=== PATIENT | male | born 1980 | race Caucasian/White ===

== ENCOUNTER → 2019-01-30 | Outpatient (CLI) | payer OTHER | END | disposition home or self-care (01) | LOC: LAB SHORT 18:01 → LAB 18:01 | DX: B35.4 Tinea corporis (principal) | CPT/HCPCS: 87070; 87102; 87205 ==

== ENCOUNTER 2023-05-07 15:04 | Inpatient (IN) | payer OTHER ==
[~2023-05-07] VITALS: Ht 182.9 cm; Wt 76.0 kg
[2023-05-07 16:03] LABS: BASOPHILS ABSOLUTE AUTO 0.04 K/mm3 (0.00-0.23); BASOPHILS PERCENT AUTO 1 % (0-2); EOSINOPHILS ABSOLUTE AUTO 0.22 K/mm3 (0.00-0.68); EOSINOPHILS PERCENT AUTO 3 % (0-6); IMMATURE GRAN ABSOLUTE AUTO 0.05 K/mm3 (0.00-0.10); IMMATURE GRAN PERCENT AUTO 1 % (0-1); LYMPHOCYTES ABSOLUTE AUTO 1.84 K/mm3 (0.84-5.20); LYMPHOCYTES PERCENT AUTO 22 % (21-46); MONOCYTES ABSOLUTE AUTO 0.62 K/mm3 (0.16-1.47); MONOCYTES PERCENT AUTO 7 % (4-13); Mean Corpuscular HGB 17.5 pg (26.0-34.0); Mean Corpuscular HGB Conc 27.2 g/dL (31.5-36.5); Mean Corpuscular Volume 65 fL (80-100); Mean Platelet Volume 10.2 fL (9.1-12.4); NEUTROPHILS ABSOLUTE AUTO 5.58 K/mm3 (1.96-9.15); NEUTROPHILS PERCENT AUTO 67 % (41-73); NRBC ABSOLUTE 0.02 K/mm3 (0.00-0.02); NRBC Auto 0.2 /100 WBC (0.0-0.2); Platelet Count 487 K/mm3 (150-400); RDW Coefficient Variation 16.7 % (11.7-14.2); RDW Standard Deviation 38.3 fL (35.1-46.3); Red Blood Cell Count 2.68 M/mm3 (4.30-5.90); White Blood Cell Count 8.35 K/mm3 (4.00-11.30)
[2023-05-07 16:10] LABS: Hematocrit 17.3 % (37.0-53.0); Hemoglobin 4.7 g/dL (13.5-17.5)
[2023-05-07] MEDS ORDERED: NS 1,000 ML IV SCH (16:10)
[2023-05-07 16:46] LABS: Albumin, Blood 4.1 g/dL (3.4-5.0); Albumin/Globulin Ratio 1.1 (0.8-1.8); Bilirubin, Total 0.5 mg/dL (0.1-1.0); Bun/Creatinine Ratio 8.9 (12.0-20.0); Calcium, Blood 9.8 mg/dL (8.5-10.1); Creatinine, Blood 1.12 mg/dL (0.60-1.20); Globulin, Blood 3.8 g/dL (2.2-4.0); Magnesium, Blood 1.7 mg/dL (1.6-2.4); Potassium, Blood 4.2 mmol/L (3.5-5.5); Total Protein, Blood 7.9 g/dL (6.4-8.2)
[2023-05-07 16:48] LABS: Percent Saturation 1.2 % (20.0-50.0)
[2023-05-07] MEDS ORDERED: Ondansetron HCl 2 MG / ML 2ML Vial IV PRN (17:40)
[2023-05-07] MEDS ORDERED: FLU VACC QS2023-24(6MOS UP)/PF 60 MCG/0.5 ML SYRINGE IM SCH (17:40)
[2023-05-07] MEDS ORDERED: LORazepam 2 MG/ML 1ML Injection IV PRN (18:10)
[2023-05-07 18:27] LABS: Prothrombin Time Results 10.5 Sec (9.7-11.5)
[2023-05-07 18:43] VITALS: BP 146/94
--- NOTE | 2023-05-07 18:53 | NUR ---
DR. ERWIN WAS CALLED ABOUT THE PLAN FOR THE PT. HE STATED THERE WILL NOT BE A SCOPE TONIGHT AND ANOTHER PROVIDER WILL BE ON TOMORROW AND THEY WILL DISCUSS THE CASE FURTHER. HE STATED THE PT WILL NEED BOWEL PREP BEFORE A SCOPE. DR. ERWIN STATED THE PT MAY HAVE A CLEAR LIQUID DIET AT THIS TIME.
[2023-05-07] MEDS ORDERED: Sod Ferric Gluc Complx/Sucrose 125 MG in NS 100 ML IV SCH (19:00)
[2023-05-07] MEDS ORDERED: Folic Acid 1 MG in NS 50 ML IV SCH (19:00)
[2023-05-07] MEDS ORDERED: SUPHEDRINE PO (19:04)
[2023-05-07] MEDS ORDERED: ACET500 PO (19:04)
[2023-05-07] MEDS ORDERED: CYCL10 PO (19:05)
[2023-05-07 19:08] VITALS: BP 140/90
[2023-05-07] MEDS ORDERED: NS 500 ML IV SCH (19:30)
[2023-05-07 19:57] VITALS: BP 147/106
[2023-05-07 20:12] VITALS: BP 159/97
[2023-05-07 20:45] VITALS: BP 152/103
[2023-05-07 21:15] VITALS: BP 151/96
[2023-05-08] VITALS (10 sets, daily range): BP systolic 140–164; BP diastolic 84–114
[2023-05-08 03:41] LABS: Hematocrit 28.5 % (37.0-53.0); Hemoglobin 8.6 g/dL (13.5-17.5); Mean Corpuscular HGB 22.1 pg (26.0-34.0); Mean Corpuscular HGB Conc 30.2 g/dL (31.5-36.5); Mean Platelet Volume 9.7 fL (9.1-12.4); NRBC ABSOLUTE 0.02 K/mm3 (0.00-0.02); NRBC Auto 0.2 /100 WBC (0.0-0.2); Platelet Count 443 K/mm3 (150-400); RDW Coefficient Variation 23.1 % (11.7-14.2); RDW Standard Deviation 58.9 fL (35.1-46.3); White Blood Cell Count 11.74 K/mm3 (4.00-11.30)
[2023-05-08 03:42] LABS: Mean Corpuscular Volume 73 fL (80-100)
[2023-05-08 03:57] LABS: Bun/Creatinine Ratio 7.5 (12.0-20.0); Calcium, Blood 9.7 mg/dL (8.5-10.1); Creatinine, Blood 0.93 mg/dL (0.60-1.20); Potassium, Blood 3.9 mmol/L (3.5-5.5)
[2023-05-08] MEDS ORDERED: Pantoprazole Sodium 40 MG Injection IV SCH (06:00)
--- NOTE | 2023-05-08 06:51 | NUR ---
SHIFT SUMMARY PATIENT ALERT AND ORIENTED x4. ANXIOUS ABOUT MEDICAL CARE BUT PATIENT IS RECEPTIVE TO PLAN OF CARE. PATIENT REPORTS "PANIC ATTACKS" WITH IV INSERTION OR ANY PROCEDURES INVOLVING NEEDLES. PATIENT WILL BECOME DIAPHORETIC AND PALE DURING PROCEDURES BUT DECLINES ANTI ANXIETY MEDICATION. MENTIONING MULTIPLE TIMES DURING THE NIGHT "I'M OK, IT'S JUST IN MY HEAD". ABLE TO MAKE NEEDS KNOWN TO STAFF. BP STABLE. TELE READING SR 80s DURING THE NIGHT. DENIED CHEST PAIN. PATIENT RECIEVED 3 UNITS PRBCs, STATES HE IS FEELING MUCH BETTER AFTER TRANSFUSIONS. AMBULATING IN ROOM INDEPENDENTLY. ADEQUATE OUTPUT DURING THE NIGHT. NO OTHER CHANGES, WILL REPORT TO DAY SHIFT RN.
[2023-05-08] MEDS ORDERED: Peg/Electrolytes 4,000 ML BTL PO ONE ×2 (08:05→13:05)
--- NOTE | 2023-05-08 17:59 | NUR ---
SHIFT SUMMARY; ASSUMED CARE AT 0700. A/A/OX4. REPORTS FEELING MUCH IMPROVED FROM PREVIOUS SHIFT. INDEPENDANT IN ROOM, REPOSITIONS SELF NEEDED. CLEAR DIET T/O DAY PER ORDERS. BOWEL PREP WITH [facility] FOR COLONOSCOPY TOMORROW AM, NPO AT 1600 TODAY PER ORDERS. PLEASANT AND COOPERATIVE WITH CARE, WILL CONTINUE TO MONITOR AND TREAT UNTIL CHANGE OF SHIFT.
[2023-05-09] VITALS (37 sets, daily range): BP systolic 121–168; BP diastolic 75–108
[2023-05-09 04:39] LABS: BASOPHILS ABSOLUTE AUTO 0.04 K/mm3 (0.00-0.23); BASOPHILS PERCENT AUTO 0 % (0-2); EOSINOPHILS ABSOLUTE AUTO 0.39 K/mm3 (0.00-0.68); EOSINOPHILS PERCENT AUTO 4 % (0-6); Hematocrit 27.1 % (37.0-53.0); Hemoglobin 8.3 g/dL (13.5-17.5); IMMATURE GRAN ABSOLUTE AUTO 0.05 K/mm3 (0.00-0.10); IMMATURE GRAN PERCENT AUTO 1 % (0-1); LYMPHOCYTES ABSOLUTE AUTO 2.68 K/mm3 (0.84-5.20); LYMPHOCYTES PERCENT AUTO 27 % (21-46); MONOCYTES ABSOLUTE AUTO 0.78 K/mm3 (0.16-1.47); MONOCYTES PERCENT AUTO 8 % (4-13); Mean Corpuscular HGB 22.6 pg (26.0-34.0); Mean Corpuscular HGB Conc 30.6 g/dL (31.5-36.5); Mean Corpuscular Volume 74 fL (80-100); NEUTROPHILS ABSOLUTE AUTO 6.18 K/mm3 (1.96-9.15); NEUTROPHILS PERCENT AUTO 61 % (41-73); Platelet Count 451 K/mm3 (150-400); RDW Coefficient Variation 24.2 % (11.7-14.2); RDW Standard Deviation 60.9 fL (35.1-46.3); Red Blood Cell Count 3.67 M/mm3 (4.30-5.90); White Blood Cell Count 10.12 K/mm3 (4.00-11.30)
[2023-05-09 05:17] LABS: Albumin, Blood 3.9 g/dL (3.4-5.0); Bilirubin, Total 1.1 mg/dL (0.1-1.0); Calcium, Blood 9.5 mg/dL (8.5-10.1); Creatinine, Blood 0.88 mg/dL (0.60-1.20); Globulin, Blood 3.8 g/dL (2.2-4.0); Potassium, Blood 3.7 mmol/L (3.5-5.5); Total Protein, Blood 7.7 g/dL (6.4-8.2)
[2023-05-09] MEDS ORDERED: Lactated Ringer's 1,000 ML IV SCH (07:20)
--- NOTE | 2023-05-09 07:46 | NUR ---
PT ARRIVED TO UNIT VIA W/C. INDEPENDENT IN ROOM AND ABLE TO TRANSFER TO W/C INDEPENDENTLY. Lungs clear T/O to Auscultation. Patient confirms NPO status and agrees with scheduled surgery. Pre-Op teaching done. Pt verbalizes understanding. CELL PHONE GIVEN TO IN ROOM.
[2023-05-09] MEDS ORDERED: propofoL 60 ML IV ONE (08:11)
[2023-05-09] MEDS ORDERED: Midazolam HCl 1MG / ML 2ML Vial ONE (08:11)
[2023-05-09] MEDS ORDERED: propofoL 20 ML IV ONE (09:08)
--- NOTE | 2023-05-09 09:13 | NUR ---
05/09/23 0913 Mike Martin HISTORY, CHART, MEDICATIONS AND ALLERGIES REVIEWED BEFORE START OF PROCEDURE. PATIENT CONFIRMS NPO STATUS AND AGREES WITH SCHEDULED PROCEDURE. 3-LEAD EKG REVIEWED WITH PHYSICIAN PRIOR TO START OF PROCEDURE. MONITOR INTACT WITH CONTINUOUS PULSE OXIMETRY,CAPNOGRAPHY, 3-LEAD EKG, INTERMITTENT BP. SUPPLEMENTAL O2 TO BE TITRATED THROUGHOUT PROCEDURE TO MAINTAIN O2 SATURATION ABOVE 90%. PATIENT DETERMINED TO BE ASA APPROPRIATE FOR PROPOFOL SEDATION PRIOR TO START OF PROCEDURE BY
== END 2023-05-09 12:26 | disposition home or self-care (01) | DRG 394 ==
LOC: ER 15:04 → PCU 18:16
PROVIDERS: Physician Assistant; Surgery; ADMIT Internal Medicine
PROC: 30233N1 Transfusion of Nonautologous Red Blood Cells into Peripheral Vein, Percutaneous Approach (ICD-10-PCS; principal; 2023-05-07)
PROC: 0DBH8ZX Excision of Cecum, Via Natural or Artificial Opening Endoscopic, Diagnostic (ICD-10-PCS; 2023-05-09)
PROC: 0DB78ZX Excision of Stomach, Pylorus, Via Natural or Artificial Opening Endoscopic, Diagnostic (ICD-10-PCS; 2023-05-09 07:30)
DX: K64.8 Other hemorrhoids (principal); D62 Acute posthemorrhagic anemia; K92.2 Gastrointestinal hemorrhage, unspecified; Z98.890 Other specified postprocedural states; Z79.899 Other long term (current) drug therapy; F10.21 Alcohol dependence, in remission
CPT/HCPCS: 36415; 36430; 80048; 80053; 83540; 83550; 83735; 85025; 85027; 85610; 86850; 86900; 86901; 86923; 93005; 93010; 99284-25; A9270; C9113; J2250; J2704; J2916; J7030; J7120; P9016